=== PATIENT | male | born 1950 | race Caucasian/White ===

== ENCOUNTER → 2020-03-19 | Outpatient (CLI) | payer BC ==
--- NOTE | 2020-03-19 17:31 | RAD ---
Three-view right hand radiographs 03/19/2020 CLINICAL HISTORY: Right hand pain post injury. PA, lateral and oblique digital radiographs of right hand were obtained. No fracture or dislocation right hand is seen. Mild to moderate degenerative changes are seen scattered throughout the Interphalangeal and MCP joints of the right hand. No radiopaque foreign body is noted. IMPRESSION: No fracture or dislocation of the right hand is seen. Electronically signed by: Zeke Bauer MD (03/19/2020 5:29 PM) [id number]
== END | disposition home or self-care (01) ==
LOC: DXRAD 09:52
PROVIDERS: ATTEND Internal Medicine
DX: L03.011 Cellulitis of right finger (principal); R22.31 Localized swelling, mass and lump, right upper limb
CPT/HCPCS: 73130